=== PATIENT | female | born 1965 | race Caucasian/White ===

== ENCOUNTER 2019-09-05 12:34 | Emergency (ER) | payer OTHER ==
[~2019-09-05] VITALS: Ht 175.3 cm; Wt 65.9 kg
[2019-09-05 12:57] VITALS: TEMP 97.8
[2019-09-05] MEDS ORDERED: FLEXERIL 1010 MG/TAB PO (14:14)
[2019-09-05 15:25] VITALS: BP 112/76; PULSE 62
== END 2019-09-05 15:00 | disposition home or self-care (01) ==
LOC: COL.ER 12:34
DX: S62.001A Unspecified fracture of navicular [scaphoid] bone of right wrist, initial encounter for closed fracture (principal); S16.1XXA Strain of muscle, fascia and tendon at neck level, initial encounter; R51 Headache; V89.2XXA Person injured in unspecified motor-vehicle accident, traffic, initial encounter